=== PATIENT | male | born 1950 | race Caucasian/White ===

== ENCOUNTER 2019-01-24 14:17 | Observation (INO) ==
[2019-01-24] MEDS ORDERED: IOPAMIDOL 100 ML BOTTLE IV ONE (14:18)
--- NOTE | 2019-01-24 14:30 | Emergency Department Note ---
Neuro HPI - General Chief Complaint: Neuro Symptoms/Deficit Stated Complaint: Left sided numbness, fall this AM Time Seen by Provider: 01/24/19 14:28 Source: patient Mode of arrival: ambulatory Limitations: no limitations - History of Present Illness HPI Narrative: This patient started having left-sided numbness and weakness about 930 this morning which would be 5 hours ago. He did take an aspirin at 11. He finally called us at 130 and we suggested he come in and it took him another hour to get here. He does have continued numbness in the entire left side of his body and marked leg weakness. Left arm seems to be reasonably strong. There is no facial droop or weakness of his facial muscles. No history of stroke heart disease diabetes hypertension. However his blood pressure is a bit high at 186/120. - Related Data Home Medications: Home Medications Medication Instructions Recorded Confirmed levothyroxine 88 mcg capsule 88 mcg PO QDAY 08/28/18 08/28/18 meloxicam 15 mg tablet 15 mg PO QDAY 08/28/18 08/28/18 omeprazole 20 mg tablet,delayed 20 mg PO QDAY 08/28/18 08/28/18 release promethazine 12.5 mg tablet 12.5 mg PO Q6H PRN 08/28/18 08/28/18 Previous Rx's Medication Instructions Recorded azithromycin 250 mg tablet See Rx Instructions PO Q24H #6 tab 08/28/18 Allergies/Adverse Reactions: Allergies Allergy/AdvReac Type Severity Reaction Status Date / Time ibuprofen [IBUPROFEN] Allergy Unknown BLISTERS Verified 01/09/19 17:16 IN MOUTH Review of Systems All systems ED: reviewed and negative except as stated. Past Medical History - Past Medical History Medical history: Reports: arthritis, GERD Surgical history ED: Reports: other (Cervical fusion, knee arthroscopy, ankle, hernia) - Social History smoking status: Never smoker Alcohol use: Reports: None Drug use: Reports: none Physical Exam Limitations: no limitations General appearance: alert Head: atraumatic Eye: Present: normal appearance ENT: normal exam Neck: Present: normal inspection Chest: Present: normal inspection Respiratory: Present: normal lung sounds bilaterally Cardiovascular: Present: regular rate, normal rhythm, normal heart sounds Abdominal: Present: soft. Absent: distention, tenderness Neurological: Present: alert Cranial nerves: facial sensation (V): Abnormal Left, facial palsy (VII): Normal Motor strength - LUE: 5/5 Motor strength - RUE: 5/5 Motor strength - LLE: 5/5 Motor strength - RLE: 3/5 Upper motor neuron exam: pronator drift: Absent bilaterally Psychiatric: Present: normal affect Skin: Present: warm, dry Course Vital Signs Pulse Rate 67 01/24/19 14:18 Respiratory Rate 18 01/24/19 14:18 Blood Pressure 186/122 01/24/19 14:18 Pulse Oximetry (%) 97 01/24/19 14:18 Pulse Rate 73 01/24/19 14:41 Respiratory Rate 14 01/24/19 15:16 Blood Pressure 184/100 01/24/19 15:12 Pulse Oximetry (%) 100 01/24/19 14:41 Neuro Symptoms/Deficit - MDM Narrative Medical decision making narrative: This patient's MRI showed an 8 mm lacunar infarct in the right thalamus that is acute and correlates with the symptoms. It also showed some old Cooner infarcts. EKG was sinus rhythm lab work was unremarkable. CTA of head and neck were completely normal. I did discuss this case with the neuro hospitalist at [facility] who felt this would be a routine stroke admission and we could keep the patient here. Dr. Negrete will do the admission. - Lab Data Lab results reviewed: Yes I reviewed the patient's lab results. Result diagrams: 01/24/19 14:30 01/24/19 14:30 Lab Results 01/24/19 01/24/19 01/24/19 Range/Units 14:30 14:30 14:30 WBC 6.9 (4.5-11.0) K/mcL RBC 5.36 (4.50-5.90) M/mcL Hgb 15.2 (13.5-16.5) g/dL Hct 47.5 (41.0-55.0) % POC Hct 49.0 (41.0-55.0) % MCV 88.5 (80.0-100.0) fL MCH 28.4 (26.0-34.0) pg MCHC 32.1 (31.0-36.0) g/dL RDW 14.7 H (11.5-14.5) % Plt Count 264 (140-440) K/mcL MPV 8.1 (7.4-10.4) fL Gran % 54.4 (38.0-78.0) % Lymph % (Auto) 36.2 (15.5-49.0) % [place] % (Auto) 6.3 (1.0-12.0) % Eos % (Auto) 2.6 (0.0-7.0) % Baso % (Auto) 0.5 (0.0-2.0) % Gran # 3.8 (1.8-8.0) K/mcL Lymph # (Auto) 2.5 (1.5-4.8) K/mcL [place] # (Auto) 0.4 (0.1-0.9) K/mcL Eos # (Auto) 0.2 (0.0-0.7) K/mcL Baso # (Auto) 0 (0.0-0.3) K/mcL POC PT 12.4 (11.9-14.5) sec POC INR 1.0 (0.9-1.2) APTT 31 (20-37) sec POC Sodium 141 (133-145) mmol/L Sodium 142 (133-145) mmol/L POC Potassium 3.8 (3.3-5.1) mmol/L Potassium 3.9 (3.3-5.1) mmol/L POC Chloride 102 (96-108) mmol/L Chloride 102 (96-108) mmol/L Carbon Dioxide 27 (22-30) mmol/L POC Total CO2 27 (22-30) mmol/L Anion Gap 13.0 (8-16) POC BUN 12 (8-23) mg/dl BUN 11 (8-23) mg/dl Creatinine 1.0 (0.7-1.2) mg/dl POC Creatinine 1.2 (0.7-1.2) mg/dl GFR Calculation 78 Glucose 111 H (70-105) mg/dL POC Glucose 112 H (70-105) mg/dL Calcium 9.5 (8.6-10.4) mg/dl POC WB Ioniz Calcium 1.21 (1.16-1.32) mmol/L Total Bilirubin 0.3 (0.0-1.0) mg/dL AST 17 (0-37) U/l ALT 12 (0-40) U/l Alkaline Phosphatase 97 (39-117) U/L Troponin T (0-0.03) ng/ml Total Protein 7.9 (5.9-8.4) gm/dL Albumin 4.1 (3.2-5.2) gm/dL Globulin 3.8 H (2.2-3.7) gm/dL Albumin/Globulin Ratio 1.1 (1.0-2.3) 01/24/19 Range/Units 14:30 WBC (4.5-11.0) K/mcL RBC (4.50-5.90) M/mcL Hgb (13.5-16.5) g/dL Hct (41.0-55.0) % POC Hct (41.0-55.0) % MCV (80.0-100.0) fL MCH (26.0-34.0) pg MCHC (31.0-36.0) g/dL RDW (11.5-14.5) % Plt Count (140-440) K/mcL MPV (7.4-10.4) fL Gran % (38.0-78.0) % Lymph % (Auto) (15.5-49.0) % [place] % (Auto) (1.0-12.0) % Eos % (Auto) (0.0-7.0) % Baso % (Auto) (0.0-2.0) % Gran # (1.8-8.0) K/mcL Lymph # (Auto) (1.5-4.8) K/mcL [place] # (Auto) (0.1-0.9) K/mcL Eos # (Auto) (0.0-0.7) K/mcL Baso # (Auto) (0.0-0.3) K/mcL POC PT (11.9-14.5) sec POC INR (0.9-1.2) APTT (20-37) sec POC Sodium (133-145) mmol/L Sodium (133-145) mmol/L POC Potassium (3.3-5.1) mmol/L Potassium (3.3-5.1) mmol/L POC Chloride (96-108) mmol/L Chloride (96-108) mmol/L Carbon Dioxide (22-30) mmol/L POC Total CO2 (22-30) mmol/L Anion Gap (8-16) POC BUN (8-23) mg/dl BUN (8-23) mg/dl Creatinine (0.7-1.2) mg/dl POC Creatinine (0.7-1.2) mg/dl GFR Calculation Glucose (70-105) mg/dL POC Glucose (70-105) mg/dL Calcium (8.6-10.4) mg/dl POC WB Ioniz Calcium (1.16-1.32) mmol/L Total Bilirubin (0.0-1.0) mg/dL AST (0-37) U/l ALT (0-40) U/l Alkaline Phosphatase (39-117) U/L Troponin T < 0.01 (0-0.03) ng/ml Total Protein (5.9-8.4) gm/dL Albumin (3.2-5.2) gm/dL Globulin (2.2-3.7) gm/dL Albumin/Globulin Ratio (1.0-2.3) - Radiology Data Radiology results reviewed: Yes I reviewed the patient's radiology results. Disposition Pt seen by [employer]/PA only: No Clinical Impression: Cerebrovascular accident Disposition: Xfer As Inpt ([facility]) Condition: Good Referrals: Aditi Whipple ARNP [Primary Care Provider] - Time of Disposition: 16:25
[2019-01-24 14:40] LABS: POC Blood Urea Nitrogen 12 mg/dl (8-23); POC CO2 27 mmol/L (22-30); POC Calcium, Ionized 1.21 mmol/L (1.16-1.32); POC Chloride 102 mmol/L (96-108); POC Creatinine 1.2 mg/dl (0.7-1.2); POC Glucose, Random 112 mg/dL (70-105); POC Potassium 3.8 mmol/L (3.3-5.1); POC Sodium 141 mmol/L (133-145)
[2019-01-24 14:53] LABS: POC Pro Time 12.4 sec (11.9-14.5)
--- NOTE | 2019-01-24 14:58 | Cat Scan Report ---
CLINICAL INFORMATION: COMPARISON: 05/19/2016 TECHNIQUE: 2.5 mm helical slices were obtained in the skull base to vertex. Following reconstruction, axial reformatted images were reviewed at bone and parenchymal windows. The exam was performed using radiation dose optimization techniques including, but not limited to, automated exposure control, adjustment of the mA and/or kV according to patient size and use of iterative reconstruction technique. FINDINGS: The ventricles, sulci, fissures, and cisterns are symmetrically enlarged compatible with mild age-related atrophy - no extra-axial fluid collection or mass appreciated. Minimal chronic ischemic change. Intracerebral white matter. 11 mm remote lacunar infarct is noted in the deep left frontal white matter and anterior limb of the left internal capsule with a few punctate remote lacunar infarcts in the basal ganglia. There is no intracerebral hemorrhage, mass effect, edema or other acute finding. Bone windows show no osseous abnormality. IMPRESSION: Mild atrophy and chronic ischemic changes in the deep cerebral white matter 11 mm old lacunar infarct deep left frontal white matter with punctate remote lacunar infarcts in the basal ganglia. No intracerebral hemorrhage edema or other acute finding Interpreted and Authenticated by: Hari Avila 01/24/19
[2019-01-24 15:12] LABS: Basophils # (Auto) 0 K/mcL (0.0-0.3); Basophils % (Auto) 0.5 % (0.0-2.0); Eosinophils # (Auto) 0.2 K/mcL (0.0-0.7); Eosinophils % (Auto) 2.6 % (0.0-7.0); Granulocytes % (Auto) 54.4 % (38.0-78.0); Hematocrit 47.5 % (41.0-55.0); Hemoglobin 15.2 g/dL (13.5-16.5); Lymphocytes # (Auto) 2.5 K/mcL (1.5-4.8); Lymphocytes % (Auto) 36.2 % (15.5-49.0); Mean Cell Volume 88.5 fL (80.0-100.0); Mean Corpuscular HGB Conc 32.1 g/dL (31.0-36.0); Mean Platelet Volume 8.1 fL (7.4-10.4); Monocytes # (Auto) 0.4 K/mcL (0.1-0.9); Monocytes % (Auto) 6.3 % (1.0-12.0); Platelet Count 264 K/mcL (140-440); RBC 5.36 M/mcL (4.50-5.90); Red Cell Distribution Width 14.7 % (11.5-14.5); WBC 6.9 K/mcL (4.5-11.0)
[2019-01-24 15:32] LABS: ALT/SGPT 12 U/l (0-40); AST/SGOT 17 U/l (0-37); Albumin 4.1 gm/dL (3.2-5.2); Albumin/Globulin Ratio 1.1 (1.0-2.3); Alkaline Phosphatase 97 U/L (39-117); Bilirubin,Total 0.3 mg/dL (0.0-1.0); Blood Urea Nitrogen 11 mg/dl (8-23); Calcium 9.5 mg/dl (8.6-10.4); Carbon Dioxide 27 mmol/L (22-30); Chloride 102 mmol/L (96-108); Globulin 3.8 gm/dL (2.2-3.7); Glomerular Filtration Rate 78; Glucose 111 mg/dL (70-105); Potassium 3.9 mmol/L (3.3-5.1); Sodium 142 mmol/L (133-145)
--- NOTE | 2019-01-24 15:39 | Cat Scan Report ---
CLINICAL INFORMATION: Left extremity weakness and numbness. Evaluate for CVA COMPARISON: None. TECHNIQUE: 80 cc of Isovue-300 were injected intravenously , and using SmartPrep to maximize cerebral arterial opacification, 0.625 mm helical slices were obtained from the skull base through the cerebral vertex. Following reconstruction , sagittal, coronal and axial reformatted images were processed and reviewed at multiple windows and levels. 3D volume rendered and MIP images were acquired at a independent workstation. The exam was performed using radiation dose optimization techniques including, but not limited to, automated exposure control, adjustment of the mA and/or kV according to patient size and use of iterative reconstruction technique. FINDINGS: The intracranial internal carotid, anterior and middle cerebral, intracranial vertebral, basilar posterior cerebral arteries are well opacified and normal in contour/caliber without occlusion, stenosis or other focal pathology. The superficial and deep cerebral veins and the venous sinuses are widely patent IMPRESSION: Normal exam Interpreted and Authenticated by: Hari Avila 01/24/19
--- NOTE | 2019-01-24 15:43 | Cat Scan Report ---
CLINICAL INFORMATION: Left-sided weakness and numbness - evaluate for CVA COMPARISON: None. TECHNIQUE: 80 cc of Isovue-300 were injected intravenously, and using SmartPrep to maximize arterial opacification, 0.625 mm helical slices were obtained from the thoracic aortic arch through the [place] of [place]. Following reconstruction, 1.25 mm sagittal, coronal and axial reformatted images were processed and reviewed at standard and bone algorithm/window. 3-D volume rendered, CPR and MIP images were processed using a [employer] work station.The exam was performed using radiation dose optimization techniques including, but not limited to, automated exposure control, adjustment of the mA and/or kV according to patient size and use of iterative reconstruction technique. FINDINGS: The thoracic aortic arch is normal in diameter with diffuse intimal thickening. Aortic branching is conventional. The brachiocephalic, both common, internal and external carotid, both subclavian and both vertebral arteries are widely patent. Soft tissues are normal. IMPRESSION: Normal thoracic aorta arch, brachiocephalic, all carotid, subclavian and vertebral arteries. Interpreted and Authenticated by: Hari Avila 01/24/19
--- NOTE | 2019-01-24 15:57 | Magnetic Resonance Report ---
CLINICAL INFORMATION: left sided weakness/numbness. Possible acute CVA COMPARISON: Head CT and CT cerebral/carotid angiogram 01/24/2019 TECHNIQUE: Sagittal T1 FLAIR, axial diffusion ADC and T2 FLAIR images were acquired FINDINGS: The ventricles, sulci, fissures and cisterns are show minimal symmetrical large compatible with mild age-related atrophy - no extra-axial fluid collection or mass is appreciated. An 8 mm focus of restricted diffusion in the lateral right thalamus represents a small acute nonhemorrhagic lacunar infarct. Multiple chronic ischemic foci throughout the the cerebral white matter and basal ganglia is compatible with senescent small vessel disease - expected for age. There is 3 mm old lacunar infarct in the right jose and a 5 mm old lacunar infarct in the left frontal white IMPRESSION: 1. 8 mm nonhemorrhagic acute lacunar infarct in the lateral right thalamus. 2. Scattered chronic ischemic foci in the deep cerebral white matter expected for age 3. Remote lacunar infarcts: 3 mm right jose and 5 mm deep left frontal white matter. Interpreted and Authenticated by: Hari Avila 01/24/19
--- NOTE | 2019-01-24 17:00 | Internal Med History&Physical ---
Medical - H&P: HPI Patient information: Note initiated : 01/24/19 at 4:56 pm Service Date, if different from initiated Date: [] Patient: Humberto Butler a 68 y/o M admitted on for Left Sided Numbness, Fall This AM. Chief Complaint: [] History of present illness: Mr. Butler is a 68 year old M with h/o HTN, presents to the emergency room for evaluation of left-sided numbness. The patient notes his symptoms started 9:30 in the morning. The symptoms started suddenly involve the entire left side of his body. There was some tingling numbness on the left side of his face he had decreased sensation on the entire left side of his body he took some aspirin a bit later around 11:00. The patient's symptoms gradually improved but eventually he decided to come to the emergency room for further evaluation at the time of presentation in the emergency room he was I believe 5 hours out from symptom onset. His initial NIH score was 3. On presentation to the emergency room patient symptoms had started to improve he only had some numbness left on his left hand and the left side of his face his lower extremity numbness had improved. The patient underwent a head CT which was interpreted as negative, he had a CT Kiki of the head and neck which is negative, had an MRI of the head which shows a acute lacunar 8 mm thalamic infarct on the left side and remote lacunar infarcts. The patient was presented to [facility] neurology and was not accepted for transfer. Patient is being admitted to the hospital for further management. The patient notes he takes aspirin 325 on a daily basis, he does have a brother with a history of factor V mutation and had a massive stroke, on reviewing his labs it seems the patient was evaluated for factor V mutation and the test was negative. The patient notes that for the last few months he has not been feeling well has increased fatigue, wakes up at night and does not sleep well and just lacks energy. He denies any dizziness or palpitations The patient notes he did not have any issues with high blood pressure, however looking at his previous notes in 2006 the patient was on metoprolol. Patient also notes that he was advised to take statin but did not take it because of how it made him feel. The patient presented to the emergency room this month couple of weeks ago with chest pain, work-up initially was negative CT angios negative EKG negative troponins negative patient was advised to follow-up with his PCP the patient did have coronary calcifications on his CT chest The patient also was seen in the urgent care clinic in August 2018 and his systolic blood pressure was 147 and diastolic blood pressure was 103. All systems: reviewed and no additional remarkable complaints except as stated (As per HPI rest negative) Medical - H&P: PMH Medical history: Graves' disease status post ablation History of Osteoarthritis Multiple fractures Pertinent family history: Brother with a massive stroke, factor V Leyden mutation was detected in his brother \Brother also had aortic aneurysm Social history: lives with Non-smoker No etoh no recreational substance reported Medical - H&P: Meds Home Medications Medication Instructions Recorded Confirmed Type azithromycin 250 mg tablet See Rx Instructions PO Q24H #6 tab 08/28/18 08/28/18 Rx levothyroxine 88 mcg capsule 88 mcg PO QDAY 08/28/18 08/28/18 History meloxicam 15 mg tablet 15 mg PO QDAY 08/28/18 08/28/18 History omeprazole 20 mg tablet,delayed 20 mg PO QDAY 08/28/18 08/28/18 History release promethazine 12.5 mg tablet 12.5 mg PO Q6H PRN 08/28/18 08/28/18 History Allergies Allergy/AdvReac Type Severity Reaction Status Date / Time ibuprofen [IBUPROFEN] Allergy Unknown BLISTERS Verified 01/09/19 17:16 IN MOUTH Medical - H&P: Exam - Constitutional Vitals: Pulse Resp BP Pulse Ox 73 14 184/100 100 01/24/19 14:41 01/24/19 15:16 01/24/19 15:12 01/24/19 14:41 Exam: Constitutional; Afebrile, cooperative, alert, not in distress. Eyes- No icterus, , No periorbital swelling Ears- Ext ear normal, hearing normal to conversation. Neck- Midline trachea, supple Respiratory system: Air Entry equal on both sides, No crackles or wheezing, no rhonchi. CVS- Rate rhythm regular, S1,S2 heard, no gallop, no rub. Abdomen- Soft nontender abdomen, no organomegaly, no tenderness, no guarding or rigidity, [employer]- AOOx3, patient is moving all his extremities. Motor strength is 5 out of 5 in his upper extremities, 5 x 5 lower extremities except his knee joints which he says is a bit weak chronically bilaterally The patient has no reflex in his right deep tendon, +2 on his left deep tendon, +2 biceps and triceps and brachioradialis in both upper extremities. Babinski is downgoing bilaterally The patient notes she has normal sensation to touch in bilateral lower extremities, he has slightly decreased sensation to touch on the outer border of his left hand, he does have decreased sensation on his face by around 10% compared to his right side. His cranial nerve from 2-12 exam is normal Medical - H&P: Reslt - Labs CBC & Chem 7: 01/24/19 14:30 01/24/19 14:30 Labs: Short CBC 01/24/19 Range/Units 14:30 WBC 6.9 (4.5-11.0) K/mcL Hgb 15.2 (13.5-16.5) g/dL Hct 47.5 (41.0-55.0) % Plt Count 264 (140-440) K/mcL BMP 01/24/19 14:30 Sodium 142 Potassium 3.9 Chloride 102 Carbon Dioxide 27 BUN 11 Creatinine 1.0 Glucose 111 H Calcium 9.5 Cardiac Enzymes 01/24/19 Range/Units 14:30 Troponin T < 0.01 (0-0.03) ng/ml Liver Function 01/24/19 Range/Units 14:30 Total Bilirubin 0.3 (0.0-1.0) mg/dL AST 17 (0-37) U/l ALT 12 (0-40) U/l Alkaline Phosphatase 97 (39-117) U/L Albumin 4.1 (3.2-5.2) gm/dL Medical - H&P: A/P - Narrative A/P Narrative: A/P Acute lacunar infarct Hypertenstion OA Hypothyroidism (s/p graves, s/p iodine ablation) Hyperlipiodemia Plan Admit to PCU sttaus Neurochecks pt does not have DM, glucose on basic is less than 140 goal bp SBP < 220, DBP < 120 , will allow permissive htn etiology of CVA? occult afib (could explain the weaknes and fatigue) Uncontrolled HTN is also possible, given his previous lacunar infarcts and previous ER visits with high BP reads. check a1c, tsh, lipid profile check echo, if possible a bubble study if work up is negative will need 30 day monitor to r/o occult afib pt is alread on ASA, will benefit from switching to plavix at discharge and a statin. DVT SCD Full code Plan of care was reviewed with the patient and his , agreeable to same.
[2019-01-24] MEDS ORDERED: ACETAMINOPHEN 325 MG TABLET PO PRN (17:23)
[2019-01-24] MEDS ORDERED: LABETALOL 5 MG/ML ML IV PRN (17:23)
[2019-01-24] MEDS ORDERED: ONDANSETRON 4 MG/2 ML VIAL IV PRN (17:23)
[2019-01-24 18:03] LABS: Cholesterol 226 mg/dl (<200); Estimated Average Glucose(eAG) 123 mg/dL; HDL Cholesterol 58 mg/dl (>40); Hemoglobin A1C 5.9 % HGB (4.0-6.0); LDL Cholesterol,Calculated 122 mg/dl (SEE CHART); Non-HDL Cholesterol 168 (LDL TARGET+30); Thyroid Stimulating Hormone 9.51 uIU/ml (0.27-5.01); Triglycerides 232 mg/dl (<150)
[2019-01-24 18:26] LABS: Appearance,Urine CLEAR; Bilirubin,Urine NEG (NEG); Color,Urine STRAW; Culture Indicated,Urine NO; Glucose,Urine (UA) NEGATIVE (NEG); Ketones,Urine NEG (NEG); Leukocyte Esterase,Urine NEG /uL (NEG); Nitrate,Urine NEG (NEG); Protein,Urine NEG (NEG); Specific Gravity,Urine 1.044 (1.000-1.035); Urine Blood NEG mg/dL (<0.03); Urobilinogen,Urine NEG (NEG)
[2019-01-24] MEDS ORDERED: PROMETHAZINE 25 MG TABLET PO PRN (20:09)
[2019-01-24] MEDS ORDERED: oxyCODONE/APAP 10/325MG TABLET PO PRN (20:09)
[2019-01-24] MEDS: 0.9 % SODIUM CHLORIDE 10 ML SYRINGE IV SCH (20:50)
[2019-01-24] MEDS ORDERED: ATORVASTATIN 20 MG TABLET PO SCH (21:00)
[2019-01-25] MEDS: 0.9 % SODIUM CHLORIDE 10 ML SYRINGE IV SCH ×3 (05:31→20:38)
[2019-01-25] MEDS ORDERED: OMEPRAZOLE 20 MG CAPSULE PO SCH (07:30)
[2019-01-25] MEDS ORDERED: LEVOTHYROXINE 88 MCG TABLET PO SCH (07:30)
--- NOTE | 2019-01-25 08:00 | Internal Med Progress Note ---
Medical - PN: Subj Patient information: Note initiated : 01/25/19 at 7:58 am Service Date, if different from initiated Date: [] Patient: Humberto Butler 68 y/o M admitted on 01/24/19 for Left Sided Numbness, Fall This AM. Chief Complaint: [] Interval history: Mr. Butler is a 68 year old M with h/o HTN, presents to the emergency room for evaluation of left-sided numbness. The patient notes his symptoms started 9:30 in the morning. The symptoms started suddenly involve the entire left side of his body. There was some tingling numbness on the left side of his face he had decreased sensation on the entire left side of his body he took some aspirin a bit later around 11:00. The patient's symptoms gradually improved but eventually he decided to come to the emergency room for further evaluation at the time of presentation in the emergency room he was I believe 5 hours out from symptom onset. His initial NIH score was 3. On presentation to the emergency room patient symptoms had started to improve he only had some numbness left on his left hand and the left side of his face his lower extremity numbness had improved. The patient underwent a head CT which was interpreted as negative, he had a CT Kiki of the head and neck which is negative, had an MRI of the head which shows a acute lacunar 8 mm thalamic infarct on the left side and remote lacunar infarcts. The patient was presented to [facility] neurology and was not accepted for transfer. Patient is being admitted to the hospital for further management. The patient notes he takes aspirin 325 on a daily basis, he does have a brother with a history of factor V mutation and had a massive stroke, on reviewing his labs it seems the patient was evaluated for factor V mutation and the test was negative. The patient notes that for the last few months he has not been feeling well has increased fatigue, wakes up at night and does not sleep well and just lacks energy. He denies any dizziness or palpitations The patient notes he did not have any issues with high blood pressure, however looking at his previous notes in 2006 the patient was on metoprolol. Patient also notes that he was advised to take statin but did not take it because of how it made him feel. The patient presented to the emergency room this month couple of weeks ago with chest pain, work-up initially was negative CT angios negative EKG negative troponins negative patient was advised to follow-up with his PCP the patient did have coronary calcifications on his CT chest The patient also was seen in the urgent care clinic in August 2018 and his systolic blood pressure was 147 and diastolic blood pressure was 103. 01/25 Patient seen examined, able to ambulate well, had some issues with swallowing last night, ST to evaluate today, feels much better sensation improved eager to go home tele does not show any afib, bp still high start on amlodipine, which I expect to start working gradually Echo is negative for any clots/thrombus. Pertinent ROS: Denies headache, dizziness Denies chest pain, palpitations Denies cough or shortness of breath Denies abdominal pain, nausea or vomiting. - Constitutional Vitals: Vital Signs Temp Pulse Resp BP Pulse Ox 98.1 F 56 L 10 L 134/101 99 01/25/19 04:20 01/25/19 04:20 01/25/19 04:20 01/25/19 04:01 01/25/19 04:20 Period Temp Pulse Resp BP Sys/Avila Pulse Ox Last 24 Hr 97.4 F-98.6 F 56-76 9- 130-193/99-136 92-100 Intake and Output 01/24/19 01/25/19 01/25/19 21:59 05:59 13:59 Intake Total 240 Output Total 550 375 Balance -550 -135 Weight 140 lb Intake & Output: Intake & Output 01/24/19 01/25/19 01/25/19 21:59 05:59 13:59 Intake Total 240 Output Total 550 375 Balance -550 -135 Weight 140 lb Intake: Oral 240 Output: Urine Catheter Amount 250 Void Amount 300 375 Other: Urine Appearance Clear Urine Color Pale Urine Odor Normal Exam: Constitutional; Afebrile, cooperative, alert, not in distress. Eyes, pupils reactive, EOM normal Respiratory system: Air Entry equal on both sides, No crackles or wheezing, no rhonchi. CVS- Rate rhythm regular, S1,S2 heard, no gallop, no rub. Abdomen- Soft nontender abdomen, no organomegaly, no tenderness, no guarding or rigidity, [employer]- AOOx3, moving all extremities, no gross focal deficit noted. notes facial numbless is 98% better Medical - PN: Obj Da - Labs CBC & Chem 7: 01/24/19 14:30 01/24/19 14:30 Labs: Abnormal Lab Results 01/24/19 01/24/19 01/24/19 17:37 14:30 14:30 RDW Glucose 111 H POC Glucose 112 H Globulin 3.8 H Triglycerides 232 H Cholesterol 226 H LDL Cholesterol, Calc 122 H Non-HDL Cholesterol 168 H TSH 9.51 H Ur Specific [place] 1.044 H 01/24/19 14:30 RDW 14.7 H Glucose POC Glucose Globulin Triglycerides Cholesterol LDL Cholesterol, Calc Non-HDL Cholesterol TSH Ur Specific [place] Meds: Medications Acetaminophen (Tylenol) 650 mg PO Q4-6HP PRN PRN Reason: PAIN/FEVER > 101 Last Admin: 01/25/19 02:09 Dose: 650 mg Documented by: Amlodipine Besylate (Norvasc) 10 mg PO DAILY [facility] Atorvastatin Calcium (Lipitor) 40 mg PO HS [facility] Last Admin: 01/24/19 20:50 Dose: 40 mg Documented by: Labetalol HCl (Trandate) 10 mg IV Q1HP PRN PRN Reason: Hypertension Levothyroxine Sodium (Synthroid) 88 mcg PO QAMAC [facility] Last Admin: 01/25/19 07:32 Dose: 88 mcg Documented by: Omeprazole (Prilosec) 20 mg PO ACB [facility] Last Admin: 01/25/19 07:32 Dose: 20 mg Documented by: Ondansetron HCl (Zofran) 4 mg IV Q4-6HP PRN PRN Reason: Nausea And Vomiting Oxycodone/Acetaminophen (Percocet 10-325mg) 1 tab PO Q4HP PRN PRN Reason: Back Pain Last Admin: 01/24/19 20:50 Dose: 1 tab Documented by: Promethazine HCl (Phenergan) 12.5 mg PO Q6HP PRN PRN Reason: Nausea Sodium Chloride (Saline Flush) 10 ml IV Q8 [facility] Last Admin: 01/25/19 05:31 Dose: 10 ml Documented by: Medical - PN: A/P - Time Spent With Patient Total time spent is greater than 50% in coordination of care (as documented) at patient's floor/unit and/or counseling patient: - Narrative A/P Narrative: A/P Acute lacunar infarct Hypertension OA Hypothyroidism (s/p graves, s/p iodine ablation) Hyperlipidemia Plan monitor on tele Neurochecks to continue A1c 5.9 start on amlodipine for blood pressure control/ pt has a lacunar infarct. Lipid elevated, started on atorvastatin etiology of CVA? occult afib (could explain the weakness and fatigue) Uncontrolled HTN is also possible, given his previous lacunar infarcts and previous ER visits with high BP reads. if work up is negative will need 30 day monitor to r/o occult afib pt is already on ASA, will benefit from switching to plavix at discharge DVT SCD Full code Medical - PN: Qual - Stroke Symptom Onset Unknown: Yes - VTE Deep Vein Thrombosis/Pulmonary Embolism Present on Admission: No
[2019-01-25] MEDS ORDERED: LABETALOL 5 MG/ML ML IV PRN (08:46)
[2019-01-25] MEDS ORDERED: ONDANSETRON 4 MG/2 ML VIAL IV PRN (08:46)
[2019-01-25] MEDS ORDERED: PROMETHAZINE 25 MG TABLET PO PRN (08:46)
[2019-01-25] MEDS ORDERED: oxyCODONE/APAP 10/325MG TABLET PO PRN (08:46)
[2019-01-25] MEDS ORDERED: amLODIPine 10 MG TABLET PO SCH (09:00)
[2019-01-25] MEDS: amLODIPine 10 MG TABLET PO SCH (09:01)
[2019-01-25] MEDS: ACETAMINOPHEN 325 MG TABLET PO PRN ×2 (14:13→21:50)
[2019-01-25] MEDS ORDERED: CYCLOBENZAPRINE 10 MG TABLET PO ONE (18:01)
[2019-01-25] MEDS ORDERED: ATORVASTATIN 20 MG TABLET PO SCH (21:00)
[2019-01-26] MEDS: 0.9 % SODIUM CHLORIDE 10 ML SYRINGE IV SCH (05:30)
[2019-01-26] MEDS ORDERED: LEVOTHYROXINE 88 MCG TABLET PO SCH (07:30)
[2019-01-26] MEDS ORDERED: OMEPRAZOLE 20 MG CAPSULE PO SCH (07:30)
[2019-01-26] MEDS: amLODIPine 10 MG TABLET PO SCH (10:00)
--- NOTE | 2019-01-26 11:01 | Discharge Summary ---
Medical - DS: Prov Patient information: Note initiated : 01/26/19 at 10:58 am Service Date, if different from initiated Date: [] Patient: Humberto Butler 68 y/o M admitted on 01/24/19 for Left Sided Numbness, Fall This AM. Chief Complaint: [] Date of admission: 01/24/19 17:05 Discharge date: 01/26/19 Primary care physician: Aditi Whipple Consults: 01/24/19 16:09 Consult to Physician [CONS] Stat Comment: Consulting Provider: Lisa Negrete Reason For Exam: Physician to Consult Medical - DS: Meds - Discharge Medications Prescriptions: amLODIPine [Norvasc] 10 mg PO DAILY #30 tab Aspirin [Ecotrin] 325 mg PO DAILY #60 tab.ec Atorvastatin [Lipitor] 40 mg PO HS #30 tab Active and Home Medications: Home Medications levothyroxine 88 mcg capsule 88 mcg PO QDAY 08/28/18 [History Confirmed 01/24/19 Last Taken 01/24/19 08:00] omeprazole 20 mg tablet,delayed release 20 mg PO QDAY 08/28/18 [History Confirmed 01/24/19 Last Taken 01/24/19 08:00] promethazine 12.5 mg tablet 12.5 mg PO Q6H PRN 08/28/18 [History Confirmed 01/24/19 Last Taken Unknown] oxyCODONE HCL/ACETAMINOPHEN [Percocet 10-325 mg Tablet] 1 each PO Q4H PRN [History Confirmed 01/24/19 Last Taken 01/24/19] Atorvastatin [Lipitor] 40 mg PO HS #30 tab 01/26/19 [Rx Last Taken Unknown] Clopidogrel Bisulfate [Plavix] 75 mg PO DAILY #30 tab 01/26/19 [Rx Last Taken Unknown] amLODIPine [Norvasc] 10 mg PO DAILY #30 tab 01/26/19 [Rx Last Taken Unknown] Medical - DS: Hosp Hospital course: Discharge diagnosis * Acute ischemic CVA 8 mm right lateral thrombus. Clinically improved with management per protocol with neuroimaging/telemetry monitoring/aspirin and statin. Recommend outpatient PT OT for continued for stroke rehabilitation. Patient has not been taking his aspirin/statin as outpatient due to poor adherence and hence aggressively counseled and will continue full dose aspirin/40 mg atorvastatin. Follow-up neurology in 2 weeks. Also recommend outpatient 30 day Holter monitoring to rule out A. fib * Suboptimally controlled hypertension start amlodipine 10 mg. Continue follow- up with PCP * Hypothyroidism managed on thyroxine * History of GERD continue PPI Brief hospital course Mr. Butler is a 68 year old M with h/o HTN, presents to the emergency room for evaluation of left-sided numbness. The patient notes his symptoms started 9:30 in the morning. The symptoms started suddenly involve the entire left side of his body. There was some tingling numbness on the left side of his face he had decreased sensation on the entire left side of his body he took some aspirin a bit later around 11:00. The patient's symptoms gradually improved but eventually he decided to come to the emergency room for further evaluation at the time of presentation in the emergency room he was I believe 5 hours out from symptom onset. His initial NIH score was 3. On presentation to the emergency room patient symptoms had started to improve he only had some numbness left on his left hand and the left side of his face his lower extremity numbness had improved. The patient underwent a head CT which was interpreted as negative, he had a CT Kiki of the head and neck which is negative, had an MRI of the head which shows a acute lacunar 8 mm thalamic infarct on the left side and remote lacunar infarcts. The patient was presented to [facility] neurology and was not accepted for transfer. Patient is being admitted to the hospital for further management. The patient notes he takes aspirin 325 on a daily basis, he does have a brother with a history of factor V mutation and had a massive stroke, on reviewing his labs it seems the patient was evaluated for factor V mutation and the test was negative. The patient notes that for the last few months he has not been feeling well has increased fatigue, wakes up at night and does not sleep well and just lacks energy. He denies any dizziness or palpitations The patient notes he did not have any issues with high blood pressure, however looking at his previous notes in 2006 the patient was on metoprolol. Patient also notes that he was advised to take statin but did not take it because of how it made him feel. The patient presented to the emergency room this month couple of weeks ago with chest pain, work-up initially was negative CT angios negative EKG negative troponins negative patient was advised to follow-up with his PCP the patient did have coronary calcifications on his CT chest The patient also was seen in the urgent care clinic in August 2018 and his systolic blood pressure was 147 and diastolic blood pressure was 103. 01/25 Patient seen examined, able to ambulate well, had some issues with swallowing last night, ST to evaluate today, feels much better sensation improved eager to go home tele does not show any afib, bp still high start on amlodipine, which I expect to start working gradually Echo is negative for any clots/thrombus. 01/26-patient started on aspirin/statin. Discharging in stable state and advised to continue follow-up with primary care physician/neurology. Also would need outpatient Holter monitoring to rule out A. fib related CVA. Detailed discharge instructions and recommendations below. Recommend Follow up neurology in 2 weeks Discharge diagnosis: . - Time Spent with Patient Total time spent providing and/or coordinating discharge services: Greater than 30 minutes Medical - DS: Exam - Constitutional Vitals: Vital Signs Temp Pulse Resp BP Pulse Ox 01/26/19 06:49 97.9 F 20 145/114 97 01/26/19 04:00 98.7 F 65 16 140/99 98 01/25/19 22:58 98.6 F 62 16 150/100 95 01/25/19 18:36 98.2 F 80 16 161/111 96 01/25/19 17:40 98.4 F 18 141/110 95 01/25/19 11:40 98.2 F 18 161/108 96 Intake and Output 01/25/19 01/26/19 01/26/19 21:59 05:59 13:59 Intake Total 295 240 Balance 295 240 Intake: Oral 295 240 Other: Meal Dinner Breakfast Percent of Meal Consumed 100% 100% Feeding Ability Independent Independent # Voids 1 Weight 135 lb Medical - DS: A/P - Patient/Caregiver Discharge Instructions Activity: as per physical therapy Diet: Regular Diet Additional Instructions: Follow-up PCP in 5 days Follow-up neurology in 2 weeks Outpatient Holter monitoring for 30 days rule out A. fib continue Continue aspirin and statin Please schedule pulmonary function test as outpatient in 3 weeks Continue aggressive bowel regimen to prevent constipation Continue fall precautions Continue for stroke outpatient rehabilitation Return to ER if worsening mental status change/weakness/, bleeding Review risk and side effect profile of medications including aspirin. Side effect may include mild to severe reaction including life-threatening bleeding and which can be prevented by close follow-up with PCP and monitoring for side effects Refrain from smoking and alcohol Continue diet and activity as advised Discussed importance of medication adherence Please review medication list with patient prior to discharge Please schedule follow-up with PCP/Providers prior to discharge and provide printouts Prescriptions: amLODIPine [Norvasc] 10 mg PO DAILY #30 tab Aspirin [Ecotrin] 325 mg PO DAILY #60 tab.ec Atorvastatin [Lipitor] 40 mg PO HS #30 tab - Follow up Plan Follow up with: Aditi Whipple ARNP [Primary Care Provider] - 02/08/19 9:00 am Disposition: Home, Self-Care Prognosis: Good Rehab Potential: Fair I certify that the patient requires SNF services: No Overall status at discharge: patient is progressing back to baseline Medical - DS: Qual - VTE Deep Vein Thrombosis/Pulmonary Embolism Present on Admission: No
== END 2019-01-26 12:45 | disposition home or self-care (01) ==
LOC: ED 14:17 → INTOOBSV 17:05 → ICU 17:05
PROVIDERS: ADMIT Internal Medicine; ATTEND Internal Medicine

== ENCOUNTER 2023-12-05 12:04 | Observation (INO) ==
[2023-12-05] MEDS ORDERED: IOPAMIDOL 100 ML BOTTLE IV ONE (12:05)
[2023-12-05 12:34] LABS: POC INR 1.1 (0.8-1.2); POC Pro Time 13.6 (11.9-14.5)
[2023-12-05 12:38] LABS: Basophils # (Auto) 0.03 K/mcL (0.00-0.30); Basophils % (Auto) 0.6 % (0.0-2.0); Eosinophils # (Auto) 0.15 K/mcL (0.00-0.70); Eosinophils % (Auto) 3.1 % (0.0-7.0); Hematocrit 44.4 % (40.1-51.0); Hemoglobin 14.2 g/dL (13.7-17.5); Lymphocytes # (Auto) 1.43 K/mcL (1.50-4.80); Lymphocytes % (Auto) 29.1 % (15.5-49.0); Mean Cell Volume 91.2 fL (80.0-100.0); Mean Platelet Volume 9.4 fL (8.8-12.5); Monocytes % (Auto) 10.2 % (1.0-12.0); Platelet Count 255 K/mcL (140-440); RBC 4.87 M/mcL (4.63-6.08); Red Cell Distribution Width 13.6 % (11.5-14.5); WBC 4.9 K/mcL (4.5-11.0)
[2023-12-05 12:59] LABS: ALT/SGPT 10 U/L (<40); AST/SGOT 24 U/L (<40); Albumin/Globulin Ratio 1.5 (1.0-2.3); Alkaline Phosphatase 98 U/L (39-117); Bilirubin,Total 0.3 mg/dL (0.1-1.0); Blood Urea Nitrogen 8 mg/dL (8-23); Calcium 9.4 mg/dL (8.6-10.4); Carbon Dioxide 27 mmol/L (22-30); Chloride 103 mmol/L (96-108); Globulin 2.6 gm/dL (2.2-3.7); Glomerular Filtration Rate 86; Glucose 124 mg/dL (70-105)
[2023-12-05 14:53] LABS: Appearance,Urine Clear (Clear); Bacteria,Urine 0 /hpf (0); Bilirubin,Urine Negative (Negative); Color,Urine Yellow; Culture Indicated,Urine No; Glucose,Urine (UA) Negative (Negative); Ketones,Urine Negative (Negative); Leukocyte Esterase,Urine Negative /uL (Negative); Nitrate,Urine Negative (Negative); PH,Urine 8.5 (5.0-9.0); Protein,Urine Negative (Negative); Specific Gravity,Urine 1.015 (1.000-1.035); Urine Blood Trace-intact ery/mcL (Negative); Urine RBC 0 /hpf (0-3); Urine Squamous Epithelial Cell 0 /hpf (0-4); Urine WBC 0 /hpf (0-4); Urobilinogen,Urine Normal
[2023-12-05] MEDS ORDERED: ONDANSETRON 4 MG/2 ML VIAL IV PRN (16:04)
[2023-12-05] MEDS ORDERED: ONDANSETRON 4 MG ODT TABLET SL PRN (16:04)
[2023-12-05 16:39] LABS: Thyroid Stimulating Hormone 0.31 uIU/mL (0.27-5.01)
[2023-12-05] MEDS: PNEUMOCOCCAL 23-VAL P-SAC VAC 0.5 ML SYRINGE IM ONE (17:09)
[2023-12-05] MEDS: GABAPENTIN 300 MG CAPSULE PO ONE (17:11)
[2023-12-05] MEDS: 0.9 % SODIUM CHLORIDE 10 ML SYRINGE IV SCH (17:11)
[2023-12-05 17:25] LABS: Hemoglobin A1C 6.1 % Hgb (4.0-6.0)
[2023-12-05] MEDS: ACETAMINOPHEN 325 MG TABLET PO PRN (17:32)
[2023-12-05] MEDS: ENOXAPARIN 40 MG/0.4 ML SYRINGE SQ SCH (20:35)
[2023-12-05] MEDS: SENNOSIDES 1 TABLET PO SCH (20:37)
[2023-12-05] MEDS ORDERED: DOCUSATE SODIUM 100 MG CAPSULE PO SCH (21:00)
[2023-12-05] MEDS ORDERED: CYCLOBENZAPRINE 10 MG TABLET PO PRN (21:40)
[2023-12-05] MEDS ORDERED: MELATONIN 3 MG TABLET PO PRN (21:43)
[2023-12-05] MEDS: oxyCODONE/APAP 10/325MG TABLET PO PRN (21:52)
[2023-12-05] MEDS: METOPROLOL SUCCINATE 25 MG TAB.XL.24H PO SCH (21:53)
[2023-12-06 06:28] LABS: Basophils # (Auto) 0.04 K/mcL (0.00-0.30); Basophils % (Auto) 0.8 % (0.0-2.0); Eosinophils # (Auto) 0.22 K/mcL (0.00-0.70); Eosinophils % (Auto) 4.5 % (0.0-7.0); Hematocrit 42.1 % (40.1-51.0); Hemoglobin 13.5 g/dL (13.7-17.5); Lymphocytes # (Auto) 2.05 K/mcL (1.50-4.80); Lymphocytes % (Auto) 42.1 % (15.5-49.0); Mean Cell Volume 90.9 fL (80.0-100.0); Mean Corpuscular HGB Conc 32.1 g/dL (31.0-36.0); Mean Platelet Volume 9.8 fL (8.8-12.5); Monocytes # (Auto) 0.57 K/mcL (0.10-0.90); Monocytes % (Auto) 11.7 % (1.0-12.0); Neutrophils % (Auto) 40.9 % (38.0-78.0); Platelet Count 230 K/mcL (140-440); RBC 4.63 M/mcL (4.63-6.08); Red Cell Distribution Width 13.9 % (11.5-14.5); WBC 4.9 K/mcL (4.5-11.0)
[2023-12-06 06:43] LABS: ALT/SGPT 8 U/L (<40); AST/SGOT 19 U/L (<40); Albumin 3.5 gm/dL (3.2-5.2); Albumin/Globulin Ratio 1.3 (1.0-2.3); Alkaline Phosphatase 89 U/L (39-117); Bilirubin,Total 0.3 mg/dL (0.1-1.0); Blood Urea Nitrogen 9 mg/dL (8-23); Carbon Dioxide 27 mmol/L (22-30); Chloride 103 mmol/L (96-108); Globulin 2.6 gm/dL (2.2-3.7); Glomerular Filtration Rate 86; Glucose 150 mg/dL (70-105)
[2023-12-06] MEDS: OMEPRAZOLE 20 MG CAPSULE PO SCH (07:25)
[2023-12-06] MEDS: LEVOTHYROXINE 88 MCG TABLET PO SCH (07:25)
[2023-12-06] MEDS: amLODIPine 5 MG TABLET PO SCH (08:47)
[2023-12-06] MEDS: ASPIRIN 81 MG TAB.CHEW CHEWED SCH (08:48)
[2023-12-06] MEDS: DULoxetine 30 MG CAPSULE PO SCH (08:48)
[2023-12-06] MEDS ORDERED: ATORVASTATIN 40 MG TABLET PO SCH (09:00)
[2023-12-06] MEDS: CLOPIDOGREL 75 MG TABLET PO SCH (09:04)
[2023-12-06] MEDS: ATORVASTATIN 40 MG TABLET PO SCH (10:47)
== END 2023-12-06 12:40 | disposition home or self-care (01) ==
LOC: ED 12:04 → INTOOBSV 15:50 → MEDSUR 15:50
PROVIDERS: ADMIT Student in an Organized Health Care Education/Training Program; ATTEND Student in an Organized Health Care Education/Training Program